=== PATIENT | male | born 1965 | race Caucasian/White ===

== ENCOUNTER 2016-11-02 13:22 | Emergency (ER) | payer OTHER ==
[2016-11-02 13:57] VITALS: RESP 18
[2016-11-02] MEDS ORDERED: ORPHENADRINE 30 MG/ML 2 ML VIAL IM STA (14:02)
[2016-11-02] MEDS ORDERED: KETOROLAC 60 MG/2 ML VIAL IM STA (14:02)
--- NOTE | 2016-11-02 14:17 | ED ---
Back Pain HPI - General Chief Complaint: Back Pain/Injury Stated Complaint: Back Pain Time Seen by Provider: 11/02/16 13:55 Source: patient, RN notes reviewed, old records reviewed Limitations: no limitations - History of Present Illness Initial Comments: This is a 50-year-old male presents emergency Department with chief complaint of exacerbation of chronic back pain. Patient reports that he's had a history of a spinal fusion and so thoracic spine last year. He reports that his pain is in the thoracic region of the spine but now breathing towards lumbar spine. Patient reports that he has some numbness and tingling going down his left leg. Patient reports that last year for his spinal fusion he had an episode where he almost lost bowel and bladder control. Patient reports that yesterday he was able to make it to the bathroom but felt like there are people possible similar situation today. Patient reports that he is able to walk and the pain is doing somewhat better today than yesterday. He denies any specific injury or causes of the pain. - Related Data Home Medications Medication Instructions Recorded Confirmed ALPRAZolam [Xanax] 0.25 mg PO BID PRN 10/20/15 10/20/15 Citalopram Hydrobromide [CeleXA] 40 mg PO DAILY 10/20/15 10/20/15 Fluticasone/Salmeterol [Advair 1 puff INHALATION RT-BID 10/20/15 10/20/15 250-50 Diskus] HYDROcodone/APAP 10-325MG [Oneida 1 tab PO HS PRN 10/20/15 10/20/15 10-325] Lisinopril [Zestril] 10 mg PO DAILY 10/20/15 10/20/15 quiNINE SULFATE [Qualaquin] 324 mg PO DAILY 10/20/15 10/20/15 Previous Rx's Medication Instructions Recorded HYDROcodone/APAP 5-325MG [Oneida 1 - 2 each PO Q8HR PRN #90 tab 10/23/15 5-325] predniSONE 20 mg PO DIRECTED #24 tab 10/23/15 Baclofen 10 mg PO TID #20 tab 11/02/16 Ketorolac [Toradol] 10 mg PO TID #15 tab 11/02/16 Allergies Allergy/AdvReac Type Severity Reaction Status Date / Time No Known Allergies Allergy Verified 11/02/16 13:54 Review of Systems ROS Statement: Those systems with pertinent positive or pertinent negative responses have been documented in the HPI. ROS Other: All systems not noted in ROS Statement are negative. Constitutional: Denies: fever, chills Eyes: Denies: eye pain ENT: Denies: ear pain, throat pain Respiratory: Denies: cough, dyspnea Cardiovascular: Denies: chest pain, palpitations Endocrine: Denies: fatigue Gastrointestinal: Denies: abdominal pain, nausea Genitourinary: Denies: urgency, dysuria Musculoskeletal: Reports: back pain Skin: Denies: rash, lesions Neurological: Denies: headache, weakness Psychiatric: Denies: anxiety, depression Past Medical History Past Medical History: Hypertension Additional Past Medical History / Comment(s): back pain History of Any Multi-Drug Resistant Organisms: None Reported Past Surgical History: No Surgical Hx Reported Past Psychological History: Depression Smoking Status: Current every day smoker Past Alcohol Use History: Occasional Past Drug Use History: None Reported - Past Family History Mother Family Medical History: No Reported History Father Family Medical History: Diabetes Mellitus General Exam - General Exam Comments Initial Comments: This is a 50-year-old male. No acute distress. Limitations: no limitations General appearance: alert, in no apparent distress Head exam: Present: atraumatic, normocephalic, normal inspection Eye exam: Present: normal appearance, PERRL, EOMI. Absent: scleral icterus, conjunctival injection, periorbital swelling ENT exam: Present: normal exam, mucous membranes moist Neck exam: Present: normal inspection. Absent: tenderness, meningismus, lymphadenopathy Respiratory exam: Present: normal lung sounds bilaterally. Absent: respiratory distress, wheezes, rales, rhonchi, stridor Cardiovascular Exam: Present: regular rate, normal rhythm, normal heart sounds. Absent: systolic murmur, diastolic murmur, rubs, gallop, clicks GI/Abdominal exam: Present: soft, normal bowel sounds. Absent: distended, tenderness, guarding, rebound, rigid Rectal exam: Present: normal inspection, normal rectal tone Extremities exam: Present: normal inspection, full ROM, normal capillary refill. Absent: tenderness, pedal edema, joint swelling, calf tenderness Back exam: Present: normal inspection Neurological exam: Present: alert, oriented X3, CN II-XII intact Psychiatric exam: Present: normal affect, normal mood Skin exam: Present: warm, dry, intact, normal color. Absent: rash Course Vital Signs 11/02/16 11/02/16 13:54 15:49 Temperature 97.0 F L 97.1 F L Pulse Rate 86 57 L Respiratory 18 18 Rate Blood Pressure 173/100 161/95 O2 Sat by Pulse 96 95 Oximetry Medical Decision Making - Medical Decision Making his is a 50-year-old male presents emergency Department with chief complaint of exacerbation of chronic back pain. Patient reports that he's had a history of a spinal fusion and so thoracic spine last year. He reports that his pain is in the thoracic region of the spine but now breathing towards lumbar spine. Patient reports that he has some numbness and tingling going down his left leg. Patient reports that last year for his spinal fusion he had an episode where he almost lost bowel and bladder control. Patient reports that yesterday he was able to make it to the bathroom but felt like there are people possible similar situation today. Patient reports that he is able to walk and the pain is doing somewhat better today than yesterday. He denies any specific injury or causes of the pain. Rectal exam was normal tone. Patient received CT lumbar and thoracic spine. Negative for any significant acute process in contact spine. Patient is given IM Toradol and Norflex. Patient was is much better. Discussed that he needs to follow-up with his orthopedic physician. Patient received treatment plan will comply. Return parameters were discussed. - Radiology Data Radiology results: report reviewed CT thoracic and lumbar spine without contrast shows L4-L5 and L5-S1 there is posterior osteophytes present, associated hypertrophic change of the facets, ligament inflatable causing lateral recess encroachment resulting in moderate to severe spinal stenosis at these levels. Loss of disc height at L5/S1. A foreign L5. Multilevel spondylosis. There is evidence of side fixation presenting T6 through 7 and 8. The brachial the left, transferred febrile screws from the left towards the right. Intravertebral spacing material may be present. Surgical clips are present. There is multilevel spondylosis and loss of disc at the intervertebral vitals of T6 through 7, T7 3 T6 or 7 she'll posterior aspirate eccentric towards the right causing anterior mass effect on the thecal sac. T7-T8 posterior aspirate causes some anterior mass effect thecal sac greater on the left than the right. Thoracic and lumbar spine bodies are intact. Disposition Clinical Impression: Chronic back pain Disposition: HOME SELF-CARE Condition: Good Instructions: Chronic Back Pain (ED) Additional Instructions: Patient advised to rest, apply heat and ice her lower back. Take anti- inflammatory medication muscle action as prescribed. Take your at home pain medication. Return to emergency department if any alarming signs or symptoms occur such as loss of bowel or bladder control. Prescriptions: Baclofen 10 mg PO TID #20 tab Ketorolac [Toradol] 10 mg PO TID #15 tab Referrals: Yvrose Coffey DO [Primary Care Provider] - 1-2 days Time of Disposition: 15:50
--- NOTE | 2016-11-02 15:28 | CT ---
EXAMINATION TYPE: CT thor lumbar spine wo con DATE OF EXAM: 11/02/2016 COMPARISON: CT thoracic lumbar spine without contrast HISTORY: Fusion Helical acquisition obtained through the thoracic and lumbar spine Correlation to prior lumbar MRI, thoracic MRI dated and 22 Oct 2015 HISTORY: History of fusion. Left leg pain and numbness CT DLP: 523.4 mGycm Automated exposure control for dose reduction was used. FINDINGS: At L4-5 and L5-S1 and there are posterior osteophytes present, there is associated hypertrophic yost e of the facets, ligamentum flavum causing lateral recess encroachment and resulting in moderate to s evere spinal stenosis at these levels. Loss of disc height L5-S1, L4-5. There is multilevel spondylos is. Side fixation is present at T6-7-8 with side brachial on the left, transvertebral screws from the lef t towards the right, intervertebral spacing material may be present, surgical clips are present. Ther e is multilevel spondylosis and loss of disc at the intervertebral levels at T6-7, T7-8. T6-7 shows p osterior osteophyte eccentric towards the right causing minimal anterior mass effect on the thecal sa c. At T7-8 posterior osteophyte causes some anterior mass effect on the thecal sac greater on the lef t than on the right. Thoracic and lumbar vertebral bodies are intact. IMPRESSION: POSTOP CHANGES IN THE THORACIC SPINE DESCRIBED. SPINAL STENOSIS L4-5, L5-S1. MULTILEVEL DEGENERATI VE DISC DISEASE.
[2016-11-02 15:50] VITALS: BP 161/95; PULSE 57; TEMP 97.1
== END 2016-11-02 15:59 | disposition home or self-care (01) ==
LOC: EC 13:22
DX: M48.07 Spinal stenosis, lumbosacral region (principal); M47.817 Spondylosis without myelopathy or radiculopathy, lumbosacral region; M47.814 Spondylosis without myelopathy or radiculopathy, thoracic region; I10 Essential (primary) hypertension; F32.9 Major depressive disorder, single episode, unspecified; F17.200 Nicotine dependence, unspecified, uncomplicated; Z79.51 Long term (current) use of inhaled steroids; Z79.899 Other long term (current) drug therapy; Z98.1 Arthrodesis status
CPT/HCPCS: 72128; 72131; 99284; 96372 ×2; J2360; J1885

== ENCOUNTER 2017-05-30 08:18 | Day surgery (SDC) | payer OTHER ==
[2017-05-29 11:29] VITALS: BMI 28.5
[2017-05-30 08:27] VITALS: TEMP 97.1
[2017-05-30] MEDS ORDERED: LIDOCAINE 1% 20 ML VIAL (10MG/ML) FOR IV START INTRADERMA ONE (08:37)
[2017-05-30] MEDS ORDERED: LACTATED RINGERS 1,000 ML IV ONE (08:37)
[2017-05-30] MEDS ORDERED: LACTATED RINGERS 1,000 ML IV SCH (09:45)
[2017-05-30] MEDS ORDERED: IV FLUID CONTINUATION 700 ML IV ONE (10:01)
[2017-05-30 10:05] VITALS: RESP 18
[2017-05-30 10:38] VITALS: BP 145/89; PULSE 70
--- NOTE | 2017-05-30 10:41 | FL ---
EXAMINATION TYPE: FL guided pain mgmt statistic DATE OF EXAM: 05/30/2017 HISTORY: Pain L side thoracic steroid injections 4 levels, 57sec fl time
--- NOTE | 2017-05-30 11:13 | XR ---
EXAMINATION TYPE: XR chest 1V portable DATE OF EXAM: 05/30/2017 HISTORY: Shortness of breath. COMPARISON: None. TECHNIQUE: Single view of the chest is submitted. FINDINGS: Demonstrated are scattered senescent parenchymal change. There is no evidence for focal infiltrate. The heart is stable. Hilar and mediastinal structures are within normal limits. Degenerative changes are seen of the dorsal spine. IMPRESSION: 1. Chronic changes without evidence for acute pulmonary disease.
--- NOTE | 2017-05-30 11:41 | P.PCN ---
Date of Procedure: 05/30/17 Surgeon: Nahum Figueroa Pathology: none sent Condition: stable Disposition: PACU Description of Procedure: PREOPERATIVE DIAGNOSIS: Thoracic spondylosis without myelopathy and facet arthropathy. POSTOPERATIVE DIAGNOSIS: Thoracic spondylosis without myelopathy and facet arthropathy. PROCEDURE DESCRIPTION: Patient presents for T3-T4, T4-T5, T5-T6, T6-T7 diagnostic medial branch blocks under fluoroscopic guidance. The procedure is performed using fluoroscopic guidance during needle placement to assure proper position and maximize safety. ANESTHESIA: Local with 1% lidocaine EBL: Minimal PROCEDURE INDICATION: Patient with thoracic facet arthropathy signs and symptoms , here for diagnostic medial branch block. Pt does not take any blood thinning medications. PROCEDURE DESCRIPTION: The patient was seen and identified in the preoperative area. Risks, benefits, complications, and alternatives were discussed with the patient (including but not limited to incomplete pain relief, bleeding, infection, nerve damage, and allergies to medications), the patient agreed to proceed with the procedure and signed the consent after all questions were answered. Patient was taken to the OR and time out was completed to verify proper patient, position, laterality of pain, and allergies. Pt was placed in the prone position and a pillow was placed under the abdomen to reduce lumbar lordosis. The thoracic area was prepped and draped in the usual sterile fashion. Using oblique fluoroscopy, the eye of the "Eren dog" of left T3 vertebral body was identified. Subsequently, after localization, a 22-gauge 3.5-inch spinal needle was inserted under fluoroscopic guidance toward the eye of the "Eren dog" of the left T3 vertebral body, corresponding to the junction of the superior articular process and the transverse process of the pedicle of the same level. After needle tip confirmation on lateral view and after negative aspiration for CSF and blood and without paresthesias, 1 mL of a 4 ml solution of 0.5% preservative-free bupivacaine and 10 mg Decadron was injected. Subsequently the needle was withdrawn intact and the same procedure was repeated for the left T4, left T5, and left T6 medial branches. Needle was withdrawn intact after each injection. At the end of the procedure, the skin was cleansed and bandages were applied. COMPLICATIONS: None. DISPOSITION/PLAN: The patient taken to the recovery area after the procedure in a stable condition for observation. Patient was reexamined prior to discharge and there were no issues and he already had significant relief. Patient was discharged home, accompanied by an adult, after meeting discharged criteria. Discharge instructions were give to the patient by the staff. Patient was specifically instructed not to drive today and to rest for the rest of the day. Patient will follow up for repeat thoracic MBB on left side in approximately 4-6 weeks.
== END 2017-05-30 11:39 | disposition home or self-care (01) ==
LOC: ORPAIN 08:18
PROVIDERS: ATTEND Anesthesiology
DX: G89.29 Other chronic pain (principal); M47.814 Spondylosis without myelopathy or radiculopathy, thoracic region; I10 Essential (primary) hypertension; F17.200 Nicotine dependence, unspecified, uncomplicated; Z79.51 Long term (current) use of inhaled steroids; Z79.891 Long term (current) use of opiate analgesic; Z79.899 Other long term (current) drug therapy
CPT/HCPCS: 71010; 64490; 64491; 64492; J1100; 99152

== ENCOUNTER 2017-08-05 07:13 | Day surgery (SDC) | payer OTHER ==
[2017-07-03 13:53] VITALS: BMI 28.5
[~2017-08-05 07:13] MED LIST: LACTATED RINGERS 1,000 ML IV SCH
[2017-08-05 07:49] VITALS: TEMP 97.6
[2017-08-05] MEDS ORDERED: LIDOCAINE 1% 20 ML VIAL (10MG/ML) FOR IV START INTRADERMA ONE (07:51)
--- NOTE | 2017-08-05 09:25 | P.PCN ---
Date of Procedure: 08/05/17 Procedure(s) Performed: PREOPERATIVE DIAGNOSIS : 1- Thoracic spondylosis with Facet Arthropathy without myelopathy . POSTOPERATIVE DIAGNOSIS: 1-Thoracic spondylosis with Facet Arthropathy without myelopathy . PROCEDURE: Diagnostic Left T3-4, T4-5 , T5-6 , T6-7 medial branch block under fluoroscopy ANESTHESIA: Local with 1% lidocaine 6 ml , moderate sedation with intravenous Versed 2 mg and Fentanyl 50 mcg. EBL: Minimal COMPLICATION: None. IV FLUIDS: 100 mL of normal saline. PROCEDURE INDICATION: Chronic low back pain secondary to Facet arthropathy unresponsive to conservative treatment. PROCEDURE DESCRIPTION: the patient was seen and identified in the preop holding area , risks and benefits and possible complications of the procedure and alternative were discussed with the patient, and the patient agreed to proceed with the procedure and signed the consent IV was started and vital signs monitored during the procedure and fluoroscopy was used to maximize the benefit and accuracy of the needle placement, and sedation was given to decrease patient anxiety, patient was taken to the procedure room and placed in prone position vital signs monitored in the back prepped with chlorhexidine X3 then under strict sterile technique using a right oblique fluoroscopy ,the junction of the transverse process and the superior articulating process of the Left T3 ,T4 ,T5 ,T6 vertebra which corresponding to the fluoroscopy image of the eye of the Eren dog on the block side for the medial branches and subsequently , after local infiltration of skin and subcu tissuies with lidocaine 1% one mL at each level ,then 22-gauge Quincke-type needles , 4 needle was used , each one of them placed at the junction of the base of the transverse process and the superior articular process at the appropriate level, and the needle was advanced until the periosteum contacted, needle placement confirmed with AP oblique and lateral view and after appropriate needle placement confirmed, and after negative aspiration for heme and CSF and there was no paresthesia 2 mL of Marcaine 0.5% mixed with 40 mg Kenalog , then half mL injected at each level after negative aspiration the needle subsequently removed intact . At the end of the procedure and the needles removed and a bandage applied after the skin was cleaned the cleaning solution patient taken to recovery room in stable condition and monitors in the recovery room for 20-30 minutes and discharged home in stable condition after discharge criteria met and patient will follow up with the pain clinic in 2-4 weeks
[2017-08-05] MEDS ORDERED: IV FLUID CONTINUATION 1,000 ML IV ONE (09:29)
[2017-08-05 09:52] VITALS: RESP 18
[2017-08-05] MEDS ORDERED: ENALAPRILAT 1.25 MG/ML 1 ML VIAL IVP STA (09:52)
--- NOTE | 2017-08-05 09:53 | XR ---
EXAMINATION TYPE: XR chest 1V DATE OF EXAM: 08/05/2017 COMPARISON: Prior chest x-ray 05/30/2017 HISTORY: Pneumothorax, post procedure chest x-ray TECHNIQUE: Single frontal view of the chest is obtained. FINDINGS: Postop changes in the thoracic spine are again noted, sixth rib shows a stable partial res ection appearance. No evident pneumothorax or pleural effusion. Cardiomediastinal silhouette, pulmona ry vascularity and leia are stable. IMPRESSION: Stable exam, no acute abnormality.
[2017-08-05 10:17] VITALS: BP 152/91; PULSE 67
--- NOTE | 2017-08-05 10:31 | FL ---
EXAMINATION TYPE: FL guided pain mgmt statistic DATE OF EXAM: 08/05/2017 COMPARISON: NONE HISTORY: Back pain TECHNIQUE: Fluoroscopy. FINDINGS/IMPRESSION: Fluoroscopic guidance was provided during procedure performed by Dr. Gamez. A total of 10 seconds of fluoroscopic time was utilized during the procedure and 3 spot images was a cquired during a left thoracic facet block.
== END 2017-08-05 10:30 | disposition home or self-care (01) ==
LOC: ORPAIN 07:13
PROVIDERS: ATTEND Specialist
DX: G89.29 Other chronic pain (principal); M47.814 Spondylosis without myelopathy or radiculopathy, thoracic region; I10 Essential (primary) hypertension
CPT/HCPCS: 71045; 64490; 64491; 64492; J2250; J3301; J3010; 99152

== ENCOUNTER → 2017-08-28 | Outpatient (CLI) | payer OTHER ==
[2017-08-28 14:52] VITALS: BP 170/102; PULSE 78; RESP 18
--- NOTE | 2017-08-29 08:13 | P.PN ---
Subjective Progress Note Date: 08/28/17 This is 51 years old male with a chronic history of severe upper/mid back pain, he was very close with thoracic spondylosis , previously we have been left side thoracic medial branch block x2 , and patient gets more than 50% improvement , after the block, and patient came for follow-up visit and to discuss the results of the procedure and the next step, I explained to the patient that because he had more than 50% improvement he would be good candidate to have radiofrequency ablation of the medial branch thoracic area, procedure risk and benefits and alternatives discussed with the patient and he agreed with proceeding, currently taking Zanaflex 4 mg every 8 hours when necessary and he is getting also Ultram 50 mg every 6 hours when necessary from his primary care, he denies any side effect of the medication he should continue the current medication and he will follow up with the pain clinic he will be scheduled for radiofrequency ablation of the left side medial branch thoracic area at T3 4, T4 5, T5 6, and T6 7 levels under fluoroscopy guidance Objective - Vital Signs Vital signs: Vital Signs Temp Pulse 78 08/28/17 14:46 Resp 18 08/28/17 14:46 BP 170/102 08/28/17 14:46 Pulse Ox Intake & Output 08/28/17 08/29/17 08/29/17 18:59 06:59 18:59 Weight 94.347 kg
== END | disposition home or self-care (01) ==
LOC: PNWHC3 14:01
PROVIDERS: ATTEND Specialist
DX: M47.814 Spondylosis without myelopathy or radiculopathy, thoracic region (principal); Z79.899 Other long term (current) drug therapy; Z79.891 Long term (current) use of opiate analgesic
CPT/HCPCS: 99211

== ENCOUNTER 2017-09-26 06:25 | Day surgery (SDC) | payer OTHER ==
[2017-09-26 06:51] VITALS: RESP 16; TEMP 98
[2017-09-26] MEDS ORDERED: LACTATED RINGERS 1,000 ML IV ONE (06:56)
[2017-09-26] MEDS ORDERED: LIDOCAINE 1% 20 ML VIAL (10MG/ML) FOR IV START INTRADERMA ONE (06:56)
[2017-09-26] MEDS ORDERED: LACTATED RINGERS 1,000 ML IV SCH (07:00)
--- NOTE | 2017-09-26 08:20 | P.PCN ---
Date of Procedure: 09/26/17 Procedure(s) Performed: PREOPERATIVE DIAGNOSIS: 1-Thoracic Spondylosis with Facet Arthropathy without myelopathy.. POSTOPERATIVE DIAGNOSIS: 1- Thoracic Spondylosis with Facet Arthropathy without myelopathy. PROCEDURES : Left Radiofrequency thermocoagulation, T3-L4, T4-L5, and T5-6 ,T6- 7 medial branch, with fluoroscopic guidance ANESTHESIA: Moderate sedation with intravenous versed 2 mg and fentaneyl 100 mcg and local infiltration with lidocaine 1% 6 ml EBL: Minimal PROCEDURE INDICATION: The patient with mid and low back pain secondary to Thoracic facet arthropathy who had more than 50% relief of her pain with previous diagnostic Thoracic medial branch block with bupivacaine. PROCEDURE DESCRIPTION / TECHNIQUE: The patient was seen and identified in the preoperative area. Risks, benefits, complications, including but not limited to risk of infection ,bleeding , allergic reactions to the medications and no complete pain releife , and alternatives were discussed with the patient, the patient agreed to proceed with the procedure and signed the consent. IV was started. Vital signs remained stable throughout the procedure. Patient was taken to the OR and time out was completed. The patient was placed in the prone position on the procedure table. The lumber area was prepped and draped in the usual sterile fashion. . Vital signs were closely monitored during the procedure .IV sedation was used during the procedure to decrease patients anxiety. Using AP and then oblique fluoroscopy, the ``eye of the Eren dog corresponding to the connection between the superior and transverse articular processes of Left T3, T4, and T5 T6 were identified, marked, and localized with 1% lidocaine. Subsequently, a 20 -mf radiofrequency cannula with a 10-mm active tip was advanced guided by fluoroscopy to each of the ``eyes of the Eren dog at Left T3, T4 , and T5. T6 Each site then underwent sensory testing at 50 Hz and 0 to 1 volt and motor testing at 2.5 Hz and 0 to 3 volt with local stimulation, but no radicular symptoms down the legs. Thereafter the Left T3-4 ,T4-5 ,T5-6 ,T6-7 sites underwent radiofrequency thermocoagulation at 80 degrees celsius for 90 seconds after injecting 0.5 ml of PF lidocaine 1%. then After the thermocoagulation done , 1 ml of the block solution containing Kenalog 40 mg and 3 ml of marcain 0.5% was injected at the Left T3-4 ,T4-5 ,T5-6 , T6-7 , levels after negative aspiration of CSF and blood and with no paresthesias. Cannulas were retracted while injecting lidocaine 1% until the needle is out At the end of the procedure, the skin was cleansed and bandages were applied. COMPLICATIONS: No acute complications. DISPOSITION / PLANS: The patient was placed in a supine position and transferred to the recovery area in a stable condition for observation and was discharged from the recovery room after meeting discharge criteria. Home discharge instructions given to the patient by the staff. The patient was reexamined prior to discharge. The patient will schedule a follow up in the clinic in 2-4 weeks.
[2017-09-26] MEDS ORDERED: IV FLUID CONTINUATION 1,000 ML IV ONE (08:22)
--- NOTE | 2017-09-26 08:33 | FL ---
Fluoroscopy History: THORACIC RADIO FREQ 42 SECS AND [address] Oglesby supervised use of the c-arm for a thoracic radio freq with pain management 42 secs fluoro and 3 paper images
--- NOTE | 2017-09-26 09:14 | XR ---
EXAMINATION TYPE: XR chest 1V portable DATE OF EXAM: 09/26/2017 COMPARISON: 08/05/2017 HISTORY: Shortness of breath TECHNIQUE: Frontal and lateral views of the chest are obtained. FINDINGS: Scattered senescent parenchymal changes noted. Hyperinflation compatible with COPD. No evidence for infiltrate. No evidence for atelectasis. Heart size is stable. Mediastinal structures are stable and grossly unremarkable. No evidence for hilar prominence. Degenerative changes dorsal spine. IMPRESSION: 1. No evidence for acute pulmonary disease.
[2017-09-26 09:37] VITALS: BP 154/85; PULSE 73
== END 2017-09-26 09:49 | disposition home or self-care (01) ==
LOC: ORPAIN 06:25
PROVIDERS: ATTEND Specialist
DX: M47.814 Spondylosis without myelopathy or radiculopathy, thoracic region (principal); Z98.1 Arthrodesis status; I10 Essential (primary) hypertension
CPT/HCPCS: 71045; 64633; 64634; J2250; J3301; J3010; 99152; 99153

== ENCOUNTER 2017-11-21 11:05 | Emergency (ER) | payer OTHER ==
[2017-11-21] MEDS ORDERED: HYDROcodone/APAP 7.5-325MG 1 EACH TAB PO STA (11:42)
--- NOTE | 2017-11-21 11:47 | ED ---
General Adult HPI - General Chief complaint: Back Pain/Injury Stated complaint: back pain Time Seen by Provider: 11/21/17 11:15 Source: patient, family, RN notes reviewed, old records reviewed Mode of arrival: ambulatory Limitations: no limitations - History of Present Illness Initial comments: Chief complaint and history of present illness is a 52-year-old male here with her significant other. The patient reports approximately 2 weeks ago while on the job lifting something it may been too heavy for him. Shortly thereafter started having discomfort to his back and neck. He does states she's had chronic issues with his neck with what he believes to be 2 bulging disks. He's also had surgery on his thoracic spine 2016 with fusion of T6 7 and 8. He states at that time he got Soni is becoming numb and tingly. Today he reported he started having discomfort at work and starting having some numbness and tingling. 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 The numbness and tingling has subsided significantly. Mild tingling but no numbness. Full range of motion upper and lower extremities. No difficulties with squeezing his buttock muscles. States she would not have any difficulty controlling urine or stool. - Related Data Home Medications Medication Instructions Recorded Confirmed ALPRAZolam [Xanax] 0.25 mg PO BID PRN 10/20/15 11/21/17 Citalopram Hydrobromide [CeleXA] 40 mg PO DAILY 10/20/15 11/21/17 Lisinopril [Zestril] 10 mg PO DAILY 10/20/15 11/21/17 quiNINE SULFATE [Qualaquin] 324 mg PO DAILY 10/20/15 11/21/17 Methocarbamol [Robaxin] 750 mg PO BID 05/13/17 11/21/17 traMADol HCL [Ultram] 50 mg PO TID PRN 05/13/17 11/21/17 Ibuprofen [Motrin] 800 mg PO TID PRN 11/21/17 11/21/17 Sildenafil Citrate [Viagra] 50 mg PO ONCE PRN 11/21/17 11/21/17 Previous Rx's Medication Instructions Recorded Hydrocodone/Acetaminophen [Bryant 1 each PO Q6HR PRN #10 tab 11/21/17 5-325] methylPREDNISolone Dose Pack 4 mg PO DIRECTED #21 package 11/21/17 [Medrol Dose Pack] Allergies Allergy/AdvReac Type Severity Reaction Status Date / Time No Known Allergies Allergy Verified 11/21/17 11:46 Review of Systems ROS Statement: Those systems with pertinent positive or pertinent negative responses have been documented in the HPI. Review of systems no headache or visual acuity changes. Complains of chronic neck pain. Mid back pain as well below low back pain. No chest pain shortness breath no GI/ problems currently no neuro deficits though he did have some numbness and tingling this morning while on the job. All systems are reviewed past medical problems significant for hypertension, he did take his medications today but he says he is in pain and nervous. He's also chronic back pain. He' s been through steroid shots and rhizotomy as recently as several months ago. He's also of back fusion of T6 7 and 8 and 2016. Family history mother had lung cancer. Patient denies any ALLERGIES. He does smoke strongly encouraged to stop special because his family history of lung cancer. His alcohol socially. No known ALLERGIES. ROS Other: All systems not noted in ROS Statement are negative. Past Medical History Past Medical History: Hypertension Additional Past Medical History / Comment(s): back pain History of Any Multi-Drug Resistant Organisms: None Reported Past Surgical History: Back Surgery Additional Past Surgical History / Comment(s): BACK FUSION T6-8. Pain procedures. Past Anesthesia/Blood Transfusion Reactions: No Reported Reaction Past Psychological History: Anxiety, Depression Smoking Status: Current every day smoker Past Alcohol Use History: Daily Past Drug Use History: None Reported - Past Family History Mother Family Medical History: No Reported History Father Family Medical History: Diabetes Mellitus General Exam - General Exam Comments Initial Comments: General: The patient is awake and alert, patient complains of pain in his thoracic and cervical region. Numbness tingling he had earlier since subsided. Vital signs temperature 98.4 pulse 78 respiratory rate 20 pulse ox 99% room air blood pressure 170/114. This was repeated after he sees pain medication. Eye: Pupils are equal, round and reactive to light, extra-ocular movements are intact ; there is normal conjunctiva bilaterally. No signs of icterus. Ears, nose, mouth and throat: There are moist mucous membranes and no oral lesions. Neck: Patient does complain of neck pain with neck flexion and extension which she reports is chronic but worse today. Cardiovascular: There is a regular rate and rhythm. No murmur, rub or gallop is appreciated. Respiratory: Lungs are clear to auscultation, respirations are non-labored, breath sounds are equal. No wheezes, stridor, rales, or rhonchi. Gastrointestinal: No nausea no vomiting. States he is able to tighten loosen his buttock muscles. Back: There is no tenderness to palpation in the midline. There is no obvious deformity. No rashes noted. Musculoskeletal: Full range of motion of upper and lower extremities. Neurovascular status is intact. No focal or lateralizing findings appreciated. Neurological: CN II-XII intact, There are no obvious motor or sensory deficits. Coordination appears grossly intact. Speech is normal. No focal or lateralizing findings appreciated on examination. See chief complaint concerning numbness tingling earlier today. Skin: Skin is warm and dry and no rashes or lesions are noted. Psychiatric: Cooperative, Limitations: no limitations Course Vital Signs 11/21/17 11/21/17 11:09 11:59 Temperature 98.4 F Pulse Rate 78 69 Respiratory 20 19 Rate Blood Pressure 170/114 160/96 O2 Sat by Pulse 99 97 Oximetry Medical Decision Making - Medical Decision Making Medical decision making; this is a 52-year-old male with chronic neck and back pain with previous thoracic spine surgery. Experienced pain numbness and tingling earlier today is since subsided. The patient reports is normally on tramadol but when given the option of tramadol or Bryant he requested of Bryant at this time. States he has not on Bryant for any other reasons. CT of the cervical and thoracic spine were done and reviewed by radiologist his final impression is stable postsurgical changes mid thoracic spine. Degenerative changes lower cervical spine as noted and detailed above. That particular report includes cervical spine as visualized in its entirety from C1 through the upper thoracic levels, demonstrates straightening alignment without evidence of acute fracture dislocation. The prevertebral soft tissue appears within normal limits. The C1-C2 articulation is within normal limits on the coronal images. Vertebral body heights are maintained there is moderate disc space narrowing at C5-C6 and C6 to C7 levels. Right paracentral spur disc complex effacing anterior thecal sac at C5-C6 level on the sagittal image 42 confirmed on axial image 62 causing advanced right sided neural foraminal narrowing. As reported by Dr. godoy The rest the report was discussed with the patient. The patient was placed on a muscle relaxant and pain medication for short duration less than 3 days. Also on steroid. Advised to follow-up with his family doctor, chronic pain management doctor and his spine surgeon. Patient be off work 3 days. Disposition Clinical Impression: Degenerative disc disease, cervical Disposition: HOME SELF-CARE Condition: Fair Instructions: Cervical Spinal Stenosis (ED), Degenerative Disc Disease (ED) Additional Instructions: No lifting. Take medications as directed. Follow-up with your family doctor, her chronic pain doctor anterior spine surgeon. Off work 3 days Prescriptions: Hydrocodone/Acetaminophen [Bryant 5-325] 1 each PO Q6HR PRN #10 tab PRN Reason: Pain methylPREDNISolone Dose Pack [Medrol Dose Pack] 4 mg PO DIRECTED #21 package Is patient prescribed a controlled substance at d/c from ED?: Yes When asked, does pt state using other controlled substances?: Yes If prescribed controlled substance>3 days was MAPS reviewed?: No If opioid is for acute pain is fill amount 7 days or less?: Yes If Rx opioid, was Start Talking consent form obtained?: Yes Referrals: Yvrose Coffey DO [Primary Care Provider] - 1-2 days Time of Disposition: 12:45
--- NOTE | 2017-11-21 12:34 | CT ---
EXAMINATION TYPE: CT CervThoracic spine wo con DATE OF EXAM: 11/21/2017 COMPARISON: MRI thoracic spine April 05, 2017 HISTORY: Upper back and neck pain with bilateral arm tingling CT DLP: 1979.4 mGycm. Automated Exposure Control for Dose Reduction was Utilized. TECHNIQUE: CT scan of the cervical in thoracic spine are obtained without contrast, axial images are obtained, sagittal and coronal reformatted images are also reviewed. FINDINGS: Cervical spine is visualized in its entirety from C1 through upper thoracic levels, demonst rates straightened alignment without evidence of acute fracture or dislocation. Prevertebral soft ti ssue appears within normal limits. The C1-C2 articulation is within normal limits on the coronal ginna ges. Vertebral body heights are maintained. There is moderate disc space narrowing at C5-C6 and C6-C7 leve ls. Right paracentral spur disc complex effacing anterior thecal sac at C5-C6 level on sagittal image 42 confirmed on axial image 62 causing advanced right-sided neural foraminal narrowing. There are some multilevel mild uncovertebral facet degenerative changes also seen bilaterally. There is additional left paracentral spur disc complex effacing anterolateral thecal sac at C6-C7 level karlene r axial image 73 with moderate to advanced left and mild to moderate right-sided neural foraminal neel rowing noted. There is mild apical scarring bilaterally in both lung apices. There is increased fluid signal occupying left mastoid air cells. Images of the thoracic spine show stable and satisfactory alignment. There is surgical change with le ft lateral fusion hardware and artificial disc material T6-T8 level. Spinal canal is grossly preserve d. Disc herniation T8-T9 and T11-T12 level are seen better on comparison MRI. No new large disc herni ations are present. No acute fracture or dislocation is seen. Visualized lungs are clear. IMPRESSION: Stable postsurgical changes mid thoracic spine. Degenerative changes lower cervical spin e are noted as detailed above.
[2017-11-21 13:19] VITALS: BP 158/94; PULSE 72; RESP 20; TEMP 97.9
== END 2017-11-21 13:00 | disposition home or self-care (01) ==
LOC: EC 11:05
DX: M50.30 Other cervical disc degeneration, unspecified cervical region (principal); I10 Essential (primary) hypertension; F32.9 Major depressive disorder, single episode, unspecified; F41.9 Anxiety disorder, unspecified; F17.200 Nicotine dependence, unspecified, uncomplicated; Z79.899 Other long term (current) drug therapy
CPT/HCPCS: 72125; 72128; 99284

== ENCOUNTER 2018-10-03 13:53 | Emergency (ER) | payer OTHER ==
[2018-10-03 14:04] VITALS: PULSE 75; RESP 18; TEMP 97.7
[2018-10-03] MEDS ORDERED: KETOROLAC 60 MG/2 ML VIAL IM STA (15:16)
--- NOTE | 2018-10-03 15:48 | ED ---
General Adult HPI - General Chief complaint: Back Pain/Injury Stated complaint: Leg numbness, neck & back pain Time Seen by Provider: 10/03/18 14:44 Source: patient, RN notes reviewed, old records reviewed Mode of arrival: ambulatory Limitations: no limitations - History of Present Illness Initial comments: 52-year-old male patient with past medical history of chronic cervical thoracic back pain. Patient is status post T6 to T8 fusion. Patient presents to ER with primary complaint of back pain with radiculopathy. Patient reports that he's having pain in his cervical and thoracic spine as well as some waxing and waning paresthesias in his upper extremities, and some minor paresthesias and has posterior right lower extremity. Patient states that these additional symptoms that he has had in the past prior to his thoracic fusion procedure. Patient has any recent falls or trauma. Patient has any injury. Patient denies any loss of bowel or bladder control, saddle anesthesia, lower upper extremity weakness. Patient is ambulatory without difficulty. Patient denies any other complaints. Systemic: Pt denies fatigue, myalgia, fever/chills, rash. Pt denies weakness, night sweats, weight loss. Neuro: Pt denies headache, visual disturbances, syncope or pre-syncope. HEENT: Pt denies ocular discharge or irritation, otalgia, rhinorrhea, phary ngitis or notable lymphadenopathy. Cardiopulmonary: Pt denies chest pain, SOB, heart palpitations, dyspnea on exertion. Abdominal/GI: Pt denies abdominal pain, n/v/d. : Pt denies dysuria, burning w/ urination, frequency/urgency. Denies new onset urinary or bowel incontinence. MSK: Pt denies myalgia, loss of strength or function in extremities. Neuro: Pt denies new onset weakness. - Related Data Home Medications Medication Instructions Recorded Confirmed ALPRAZolam [Xanax] 0.25 mg PO HS PRN 10/20/15 10/03/18 Citalopram Hydrobromide [CeleXA] 40 mg PO DAILY 10/20/15 10/03/18 quiNINE SULFATE [Qualaquin] 324 mg PO DAILY 10/20/15 10/03/18 Methocarbamol [Robaxin] 750 mg PO BID PRN 05/13/17 10/03/18 Sildenafil Citrate [Viagra] 50 mg PO ONCE PRN 11/21/17 10/03/18 Celecoxib [CeleBREX] 200 mg PO DAILY 10/03/18 10/03/18 Lisinopril 40 mg PO DAILY 10/03/18 10/03/18 Previous Rx's Medication Instructions Recorded Ibuprofen [Motrin] 600 mg PO Q6HR PRN #40 day 10/03/18 Allergies Allergy/AdvReac Type Severity Reaction Status Date / Time No Known Allergies Allergy Verified 10/03/18 15:30 Review of Systems ROS Statement: Those systems with pertinent positive or pertinent negative responses have been documented in the HPI. ROS Other: All systems not noted in ROS Statement are negative. Past Medical History Past Medical History: Hypertension Additional Past Medical History / Comment(s): back pain History of Any Multi-Drug Resistant Organisms: None Reported Past Surgical History: Back Surgery Additional Past Surgical History / Comment(s): BACK FUSION T6-8. Pain procedures. Past Anesthesia/Blood Transfusion Reactions: No Reported Reaction Past Psychological History: Anxiety, Depression Smoking Status: Current every day smoker Past Alcohol Use History: Daily Past Drug Use History: None Reported - Past Family History Mother Family Medical History: No Reported History Father Family Medical History: Diabetes Mellitus General Exam - General Exam Comments Initial Comments: Constitutional: NAD, AOX3, Pt has pleasant affect. HEENT: NC/AT, trachea midline, neck supple, no lymphadenopathy. Posterior pharynx non erythematous, without exudates. External ears appear normal, without discharge. Mucous membranes moist. Eyes PERRLA, EOM intact. There is no scleral icterus. No pallor noted. Cardiopulmonary: RRR, no murmurs, rubs or gallops, no JVD noted. Lungs CTAB in anterior and posterior cortez. No peripheral edema. Abdominal exam: Abdomen soft and non-distended. Abdomen non-tender to palpation in all 4 quadrants. Bowel sounds active in LLQ. No hepatosplenomegaly. No ecchymosis Neuro: CN II-XII intact. No nuchal rigidity. No focal deficit no facial droop. MSK: 5 out of 5 strength quadriceps psoas muscles. The toe walking intact. 2 out of 4 reflexes patellar and Achilles. No tenderness cervical thoracic lumbar spine. No posterior calf tenderness bilaterally, homans sign negative bilaterally. Posterior tibialis and radial pulse +2 bilaterally. Sensation intact in upper and lower extremities. Full active ROM in upper and lower extremities, 5/5 stregnth in upper and lower extremities. Limitations: no limitations Course Vital Signs 10/03/18 14:01 Temperature 97.7 F Pulse Rate 75 Respiratory 18 Rate Blood Pressure 156/92 O2 Sat by Pulse 97 Oximetry Medical Decision Making - Medical Decision Making 52-year-old male patient with past medical history of chronic cervical thoracic back pain. Patient is status post T6 to T8 fusion. Patient presents to ER with primary complaint of back pain with radiculopathy. Patient reports that he's having pain in his cervical and thoracic spine as well as some waxing and waning paresthesias in his upper extremities, and some minor paresthesias and has posterior right lower extremity. Patient states that these additional symptoms that he has had in the past prior to his thoracic fusion procedure. Patient has any recent falls or trauma. Patient has any injury. Patient denies any loss of bowel or bladder control, saddle anesthesia, lower upper extremity weakness. Patient is ambulatory without difficulty. Patient denies any other complaints. Patient vital signs stable, afebrile. Physical exam displayed: 5 out of 5 strength quadriceps psoas muscles. The toe walking intact. 2 out of 4 reflexes patellar and Achilles. No tenderness cervical thoracic lumbar spine. No posterior calf tenderness bilaterally, homans sign negative bilaterally. Posterior tibialis and radial pulse +2 bilaterally. Sensation intact in upper and lower extremities. Full active ROM in upper and lower extremities, 5/5 stregnth in upper and lower extremities. Plain film of cervical, thoracic, lumbar spine did not display acute process. Patient administration of Toradol. Patient discharged with nonsteroidal anti-inflammatories. Pt will f/u with pcp as well as orthopedic surgeon in 1-2 days. Pt will return to ER if condition worsens in anyway. Case discussed with Dr. Baugh. Disposition Clinical Impression: Back pain with radiculopathy Disposition: HOME SELF-CARE Condition: Stable Instructions (If sedation given, give patient instructions): Chronic Back Pain (ED) Additional Instructions: Patient to adhere to previously discussed treatment plan and will take medication(s) as directed. Patient to follow up with PCP in 1-2 days. Patient to return to ED if symptoms do not improve. Follow-up with primary care provider and orthopedic surgeon 1-2 days. If unable to follow up with personal orthopedic surgeon orthopedic consult provided. Use nonsteroidal anti-inflammatories as needed for pain. Return to ER if condition worsens in any way. Prescriptions: Ibuprofen [Motrin] 600 mg PO Q6HR PRN #40 day PRN Reason: Pain Is patient prescribed a controlled substance at d/c from ED?: No Referrals: Yvrose Coffey DO [Primary Care Provider] - 1-2 days Joel Webb DO [Doctor of Osteopathic Medicine] - 1-2 days
--- NOTE | 2018-10-03 16:07 | XR ---
EXAMINATION TYPE: XR thoracic spine complete DATE OF EXAM: 10/03/2018 CLINICAL HISTORY: pain TECHNIQUE: Frontal, lateral, and swimmer's view of thoracic spine are obtained. COMPARISON: None. FINDINGS: Thoracic spine show satisfactory alignment without evidence of acute fracture or dislocatio n. Vertebral body heights are preserved. Disc spaces are well preserved. Visualized ribs are unrem arkable. Postsurgical screws and rin T6-T8. Alignment is anatomic. IMPRESSION: No acute fracture or dislocation is seen in the thoracic spine. ICD 10 NO FRACTURE, INIT IAL EVALUATION
--- NOTE | 2018-10-03 16:09 | XR ---
EXAMINATION TYPE: XR cervical spine comp DATE OF EXAM: 10/03/2018 CLINICAL HISTORY: pain COMPARISON: NONE TECHNIQUE: Frontal, lateral, oblique, swimmers, and open mouth view of the cervical spine are obtaine d. FINDINGS: The cervical spine is visualized in its entirety from C1 thru the top of T1 level. It is s atisfactory in alignment without evidence of acute fracture or dislocation. The pre-vertebral soft t issue appears within normal limits. Moderate degenerative disc space narrowing and spondylosis C5-6 a nd C6-7. The C1-C2 articulation is unremarkable on the open mouth view. IMPRESSION: No acute fracture or dislocation is seen in the cervical spine.ICD 10 NO FRACTURE, INITI AL EVALUATION
--- NOTE | 2018-10-03 16:11 | XR ---
EXAMINATION TYPE: XR lumbar spine 2 or 3V DATE OF EXAM: 10/03/2018 CLINICAL HISTORY: pain TECHNIQUE: Three views of the lumbar spine are submitted. COMPARISON: None. FINDINGS: There are 5 lumbar type vertebral bodies identified. The lumbar spine shows satisfactory alignment w ithout evidence of acute fracture or dislocation. Vertebral body heights are within normal limits. Moderate degenerative changes L4-5 and L5-S1. Ventral spondylosis and facet joint arthropathy noted. The overlying soft tissue appears unremarkable. IMPRESSION: No acute fracture or dislocation is seen in the lumbar spine. ICD 10 NO FRACTURE, INITIAL EVALUATION
[2018-10-03 17:43] VITALS: BP 166/82
== END 2018-10-03 17:40 | disposition home or self-care (01) ==
LOC: EC 13:53
DX: M54.13 Radiculopathy, cervicothoracic region (principal); I10 Essential (primary) hypertension; F32.9 Major depressive disorder, single episode, unspecified; F41.9 Anxiety disorder, unspecified; F17.200 Nicotine dependence, unspecified, uncomplicated; Z79.899 Other long term (current) drug therapy; R29.6 Repeated falls
CPT/HCPCS: 72072; 72050; 72100; 99284; 96372; J1885

== ENCOUNTER → 2018-11-04 | Outpatient (CLI) | payer OTHER ==
--- NOTE | 2018-11-04 14:58 | MR ---
EXAMINATION TYPE: MR laurence/lspine wo con DATE OF EXAM: 11/04/2018 COMPARISON: Radiographs of the cervical and lumbar spine dated 10/03/2018 HISTORY: thoracic pain/ spondylolisthesis. Back pain. TECHNIQUE: Multiplanar, multisequence imaging of the cervical and lumbar spine is performed without I V contrast. FINDINGS: Cervical spine: The cervical spine vertebral bodies maintain normal vertebral body heights and alignment. Multilevel disc desiccation is seen. There is very slightly abnormal hyperintense signal of the cervical cord at the C5-C6 and C6-C7 levels without cord expansion therefore relating to mild myelomalacia. Degenerat viridiana endplate changes are present. C2-C3: No significant disc disease, spinal canal stenosis, or right neural foraminal narrowing. There is mild left neural foraminal narrowing due to uncovertebral hypertrophy and facet arthropathy. C3-C4: There is a right paracentral disc herniation minimally narrowing the ventral subarachnoid spac e without spinal canal stenosis nor neural foraminal narrowing. C4-C5: There is uncovertebral hypertrophy and facet arthropathy as well as a small central disc osteo phyte complex also mildly narrowing the ventral subarachnoid space and right neuroforamen. Left neura l foramen is patent. No significant spinal canal stenosis. C5-C6: There is a right paracentral disc herniation extending into the lateral recess creating modera te to severe right neural foraminal narrowing and mild to moderate spinal canal stenosis. Minimal lig amentum flavum buckling is also seen as well as facet arthropathy and uncovertebral hypertrophy. Ther e is resultant mild to moderate left neural foraminal narrowing. C6-C7: There is a left paracentral disc herniation extending into the lateral recess superimposed upo n a broad-based disc bulge. Uncovertebral hypertrophy and facet arthropathy are present creating mild to moderate spinal canal stenosis and resulting in mild myelomalacia. There is also moderate left ne ural foraminal narrowing and [id number] right neural foraminal narrowing. C7-T1: There is a right paracentral disc herniation superimposed on a broad-based disc bulge in [facility] with uncovertebral hypertrophy creating moderate right neural foraminal narrowing. Spinal julio l and left neural foramen are patent. Lumbar spine: There is minimal retrolisthesis of L5 on S1, L4 on L5, L3 and L4, and L2 on L3. Modic type II discoge boyd endplate changes are present at L4-L5 and L5-S1. Conus medullaris is unremarkable terminating at L1-L2. L1-L2: There is disc desiccation without disc herniation, spinal canal stenosis nor neural foraminal narrowing. L2-L3: There is a broad-based disc bulge and facet arthropathy resulting in very minimal bilateral ne ural foraminal narrowing without spinal canal stenosis. L3-L4: There is a right paracentral disc herniation extending into the lateral recess creating modera te right neural foraminal narrowing and mild left neural foraminal narrowing in combination with face t arthropathy. No spinal canal stenosis. L4-L5: There is a large broad-based disc bulge that is right eccentric and a right lateral disc herni ation creating moderate right neural foraminal narrowing and mild spinal canal stenosis in combinatio n with ligamentum flavum buckling and facet arthropathy. Minimal left neural foraminal narrowing is s een. L5-S1: There is a large broad-based disc bulge and left paracentral disc herniation creating severe s warner canal stenosis in combination with ligamentum flavum buckling and facet arthropathy. This also creates moderate to severe left and moderate right neural foraminal narrowing. IMPRESSION: 1. Mild to moderate spinal canal stenosis at C5-C6 resulting in myelomalacia focally as a result of a right paracentral disc herniation and degenerative change. This also results in mild to moderate lef t neural foraminal narrowing and moderate to severe right neural foraminal narrowing as the herniatio n extends into the right lateral recess. 2. Left paracentral disc herniation at C6-C7 creating mild to moderate spinal canal stenosis and resu lting in mild myelomalacia. This also creates moderate left neural foraminal narrowing and mild-to-mo derate right neural foraminal narrowing. 3. Right paracentral disc herniation at C3-C4 without spinal canal stenosis nor neural foraminal narr owing. 4. Right paracentral disc herniation at T7 T1 creating moderate right neural foraminal narrowing. No spinal canal stenosis at this level. 5. Right paracentral disc herniation at L3-L4 creating moderate right neural foraminal narrowing with extent into the lateral recess. 6. Mild spinal canal stenosis as a result of a right eccentric disc bulge and right lateral disc cherri iation at L4-L5. This also creates moderate right and minimal left neural foraminal narrowing. 7. Severe spinal canal stenosis at L5-S1 secondary to a left paracentral disc herniation and large br oad-based disc bulge also crating moderate to severe left and moderate right neural foraminal narrowi ng at this level.
== END | disposition home or self-care (01) ==
LOC: RADMRIMAIN 11:49
PROVIDERS: ATTEND Orthopaedic Surgery Orthopaedic Surgery of the Spine
DX: M48.061 Spinal stenosis, lumbar region without neurogenic claudication (principal); M48.07 Spinal stenosis, lumbosacral region; M48.02 Spinal stenosis, cervical region; M50.21 Other cervical disc displacement, high cervical region; M51.26 Other intervertebral disc displacement, lumbar region; M51.27 Other intervertebral disc displacement, lumbosacral region; M47.812 Spondylosis without myelopathy or radiculopathy, cervical region; G95.89 Other specified diseases of spinal cord
CPT/HCPCS: 72141; 72148

== ENCOUNTER → 2018-11-05 | Outpatient (CLI) | payer OTHER ==
--- NOTE | 2018-11-05 16:01 | MR ---
EXAMINATION TYPE: MR thoracic spine wo/w con DATE OF EXAM: 11/05/2018 12:57 PM COMPARISON: 04/05/2017 HISTORY: Pain in thoracic spine / Thoracic DD Multiplanar MultiSpin echo imaging of the thoracic spine was performed. Pre and post contrast enhanc ed images are submitted following the administration of Gadavist 10 mL Disc spaces: Surgical intervention noted T6-T8 with artifact from disc material identified. Persisten t small posterocentral disc herniation at T8-T9 effaces the ventral thecal sac. No new disc herniatio ns identified. The remaining levels are within normal limits. Spinal canal: Spinal canal is capacious without evidence for central stenosis or epidural mass. Thoracic spinal cord: Spinal cord thinning and increased signal involving the T7-T8 level compatible with residual myelomalacia. Paraspinal soft tissues: No evidence for paraspinal mass. No destructive lesions seen. Vertebral segments: No evidence for fracture or bony lesion. Other: Disc herniations and central stenosis C5-6 and C6-7. No pathologic enhancement identified. IMPRESSION: 1. Stable postsurgical change at T6-T8 with artifact redemonstrated. 2. Redemonstration of the atrophic change of the spinal cord at T7-T8 with a myelomalacia seen.
== END | disposition home or self-care (01) ==
LOC: RADMRIMAIN 11:45
PROVIDERS: ATTEND Orthopaedic Surgery Orthopaedic Surgery of the Spine
DX: M54.6 Pain in thoracic spine (principal); G95.89 Other specified diseases of spinal cord; Z98.1 Arthrodesis status
CPT/HCPCS: 72157; A9585

== ENCOUNTER → 2018-11-20 | Outpatient (CLI) | payer OTHER ==
[2018-11-20 13:31] LABS: Basophils # (A) 0.1 k/uL (0-0.2); Basophils % (A) 1 %; Eosinophils # (A) 0.2 k/uL (0-0.7); Eosinophils % (A) 3 %; HCT 44.9 % (39.0-53.0); HGB 15.2 gm/dL (13.0-17.5); Lymphocytes % (A) 24 %; MCH 33.3 pg (25.0-35.0); MCHC 33.9 g/dL (31.0-37.0); MCV 98.2 fL (80.0-100.0); Mean Platelet Volume 8.6; Monocytes # (A) 0.5 k/uL (0-1.0); Monocytes % (A) 6 %; Neutrophils # (A) 5.4 k/uL (1.3-7.7); Neutrophils % (A) 65 %; Platelet Count 157 k/uL (150-450); RBC 4.57 m/uL (4.30-5.90); RDW 14.4 % (11.5-15.5); WBC 8.4 k/uL (3.8-10.6)
--- NOTE | 2018-11-20 13:32 | XR ---
EXAMINATION TYPE: XR chest 2V DATE OF EXAM: 11/20/2018 COMPARISON: 09/26/2017 TECHNIQUE: PA and lateral views submitted. HISTORY: Preop FINDINGS: The lungs are clear and there is no pneumothorax, pleural effusion, or focal pneumonia. There is ev idence of previous left-sided rib resection. Postsurgical change involving vertebral column. Hyperinf lation suggestive of COPD. Biapical pleural thickening. IMPRESSION: 1. No acute process.
[2018-11-20 13:34] LABS: Appearance,Urine Clear (Clear); Bilirubin,Urine Negative (Negative); Blood,Urine Negative (Negative); Color,Urine Yellow; Glucose,Urine (UA) Negative (Negative); Hyaline Casts,Urine 1 /lpf (0-2); Ketones,Urine Negative (Negative); Leukocyte Esterase,Urine Negative (Negative); Mucus,Urine Occasional /hpf; Nitrite,Urine Negative (Negative); PH, Urine 6.5 (5.0-8.0); Protein,Urine 1+ (Negative); WBC,Urine <1 /hpf (0-5)
[2018-11-20 13:39] LABS: Prothrombin Time 10.7 sec (9.0-12.0)
[2018-11-20 13:40] LABS: Partial Thromboplastin Time 24.5 sec (22.0-30.0)
[2018-11-20 13:48] LABS: ALT 36 U/L (21-72); AST 27 U/L (17-59); African American GFR (CKD) >90 (>60 ml/min/1.73 sqM); Albumin 4.1 g/dL (3.5-5.0); Alkaline Phosphatase 53 U/L (38-126); Anion Gap 8 mmol/L; Blood Urea Nitrogen 12 mg/dL (9-20); Calcium 8.9 mg/dL (8.4-10.2); Carbon Dioxide 23 mmol/L (22-30); Chloride 108 mmol/L (98-107); Glucose 103 mg/dL (74-99); Potassium 3.9 mmol/L (3.5-5.1); Sodium 139 mmol/L (137-145); Total Bilirubin 0.7 mg/dL (0.2-1.3); Total Protein 6.5 g/dL (6.3-8.2)
== END | disposition home or self-care (01) ==
LOC: LABPAT 12:17
PROVIDERS: ATTEND Orthopaedic Surgery Orthopaedic Surgery of the Spine
DX: Z01.818 Encounter for other preprocedural examination (principal); Z01.812 Encounter for preprocedural laboratory examination; G95.89 Other specified diseases of spinal cord
CPT/HCPCS: 71046; 80053; 81001; 85025; 85610; 85730

== ENCOUNTER 2018-12-01 14:20 | Day surgery (SDC) | payer OTHER ==
[~2018-12-01 14:20] MED LIST changes: +BACITRACIN 50,000 UNIT, POLYMYXIN B 500,000 UNIT in SODIUM CHLORIDE 0.9% IRRIGATIO 1,00... IRRIGATION ONE; +DEXAMETHASONE SOD PHOSPHATE 10 MG/ML 1 ML VIAL IV ONE; +LIDOCAINE 1% 20 ML VIAL (10MG/ML) FOR IV START INTRADERMA PRN; +MIDAZOLAM 2 MG/2 ML VIAL IV PRN; +ONDANSETRON 4 MG/2 ML VIAL IVP ONE; +ceFAZolin IN SWFI 2 GM/20 ML SYRINGE IVP ONE; +fentaNYL (PF) 50 MCG/ML 2 ML AMP IV PRN
[2018-12-01] MEDS ORDERED: PROPOFOL 10 MG/ML 20 ML VIAL IV ONE (16:26)
[2018-12-01] MEDS ORDERED: GLYCOPYRROLATE 0.2 MG/ML 2 ML VIAL ONE (16:26)
[2018-12-01] MEDS ORDERED: SUCCINYLCHOLINE CHLORIDE 100 MG/5 ML SYR IV ONE (16:26)
[2018-12-01] MEDS ORDERED: NEOSTIGMINE 1 MG/ML 10 ML VIAL ONE (16:26)
[2018-12-01] MEDS ORDERED: ROCURONIUM BROMIDE 10 MG/ML 10 ML VIAL IV ONE (16:26)
[2018-12-01] MEDS ORDERED: fentaNYL (PF) 50 MCG/ML 2 ML AMP ONE (16:26)
[2018-12-01] MEDS ORDERED: ePHEDrine SULFATE/0.9% NACL/PF 50 MG/5 ML SYRINGE IV ONE (16:26)
[2018-12-01] MEDS ORDERED: MIDAZOLAM 2 MG/2 ML VIAL ONE (16:26)
[2018-12-01] MEDS ORDERED: DEXAMETHASONE SOD PHOS (MDV) 100 MG/10 ML VIAL ONE (16:26)
[2018-12-01] MEDS ORDERED: LIDOCAINE 1% INJ 10MG/ML (20 ML MDV) ONE (16:26)
[2018-12-01] MEDS ORDERED: GELATIN SPONGE,ABSORB (LARGE) 1 EACH SPONGE MISCELLANE ONE ×2 (16:30→16:51)
[2018-12-01] MEDS ORDERED: LIDOCAINE 0.5%-EPI 1:200,000 50 ML VIAL SQ ONE ×2 (16:30→16:51)
[2018-12-01] MEDS ORDERED: THROMBIN (BOVINE) 5,000 UNIT VIAL TOPICAL ONE ×4 (16:30→16:51)
[2018-12-01] MEDS ORDERED: LACTATED RINGERS 1,000 ML IV ONE ×2 (16:51→19:30)
[2018-12-01] MEDS ORDERED: HYDROmorphone 1 MG/ML 1 ML SYRINGE IVP PRN (18:26)
[2018-12-01] MEDS ORDERED: HYDROmorphone 0.5 MG/0.5 ML SYRINGE IVP PRN (18:26)
[2018-12-01] MEDS ORDERED: BENZOCAINE/MENTHOL LOZENG 1 EACH LOZENGE MUCOUS MEM PRN (18:26)
[2018-12-01] MEDS ORDERED: HYDROcodone/APAP 5-325MG 1 EACH TAB PO PRN (18:27)
[2018-12-01] MEDS ORDERED: ONDANSETRON 4 MG/2 ML VIAL IVP PRN (18:27)
[2018-12-01] MEDS ORDERED: HYDROcodone/APAP 7.5-325MG 1 EACH TAB PO PRN (18:28)
[2018-12-01] MEDS ORDERED: ALPRAZolam 0.25 MG TAB PO PRN (18:28)
[2018-12-01] MEDS ORDERED: METHOCARBAMOL 750 MG TAB PO PRN (18:28)
[2018-12-01] MEDS ORDERED: SODIUM CHLORIDE 0.9% 1,000 ML IV SCH (18:30)
--- NOTE | 2018-12-01 18:37 | P.OP ---
Date of Procedure: 12/01/18 Preoperative Diagnosis: Herniated nuclear pulposus C5 6 C6 7, cervical stenosis C5 6 C6 7, degenerative disc disease, neck pain, upper extremity radiculopathy, upper extremity weakness Postoperative Diagnosis: Same Anesthesia: GETA Pathology: none sent Condition: stable Disposition: PACU Description of Procedure: BRIEF OPERATIVE NOTE Preoperative Diagnosis:Herniated nuclear pulposus C5 6 C6 7, cervical stenosis C5 6 C6 7, degenerative disc disease, neck pain, upper extremity radiculopathy, upper extremity weakness Postoperative Diagnosis:Herniated nuclear pulposus C5 6 C6 7, cervical stenosis C5 6 C6 7, degenerative disc disease, neck pain, upper extremity radiculopathy, upper extremity weakness Procedure: Anterior cervical decompression with discectomy and fusion C5 6 C6 7 Placement of interbody graft C5 6 C6 7 Removal of large anterior cervical osteophytes and Application of anterior cervical plate C5 6 7 Surgeon: Dr. Mantilla Reproduction Production Manager: Jadon Mar is present throughout the entire the case persistence during positioning, dissection, exposure, visualization, and all crucial elements of the case as well as closure. Anesthesia: General anesthesia Estimated blood loss: Approximately 75 mL Complications: None apparent Components implanted: K2M Villard anterior cervical plate system with 6 screws, Vi kos interbody allograft bone graft and 1 mL of DBX bone putty Disposition: To recovery room in good stable condition. OPERATIVE INDICATIONS The patient has had severe worsening issues in their neck and upper extremities. He was found have large disc herniation C5 6 C6 7 which correlated well with his neck and upper extremity symptoms. He was having worsening symptoms despite aggressive conservative care. He was marc evidence of weakness at his upper extremity. The patient has been through conservative treatment. We discussed various treatment options including surgery, and the patient wishes to proceed with surgery We discussed the risk, patient's alternatives and benefits of surgery including but not limited to, risk of bleeding risk of infection, risk of need for further surgery, risk of decreased, loss of motion, muscle function, malunion nonunion, hardware failure, nerve damage, paralysis, heart attack, and . OPERATIVE SUMMARY After discussing all the risks, patient alternatives and benefits at length, the patient elected to proceed with surgical intervention, signed informed consent, and presented for their procedure. The patient was seen and examined in the p reoperative holding area and the surgical site was marked. The patient was given antibiotics and brought to the operating room. The patient was positioned on the operating room table in a supine position being careful to pad any bony prominences and pressure points. The patient was sedated and intubated by anesthesia in standard fashion. Once the airway and C- spine were stabilized the patient's arms were padded and tucked at her side, with her shoulders gently taped. The head was placed in a donut pad with the neck in good neutral alignment and position. We were careful to maintain the p atient's cervical spine and good neutral alignment and position throughout. The patient was prepped and draped in a normal standard fashion. An appropriate timeout and keystone protocol performed. We were able to proceed with the surgery. The local wound area was infiltrated with local anesthetic. An incision was made transversely approximately 2-1/2 cm over the appropriate levels at C6. Dissection was taken down subcutaneously to the level of the platysma which was split in line with its fibers. Dissection was taken with a carotid approach, with the trachea and esophagus medial and the carotid sheath laterally. We dissected down to the anterior surface of the vertebral bodies of C5 6 and 7. Intraoperative x-ray was taken which showed a marker at the appropriate level at C5 6. With the appropriate level positively confirmed, we were able to proceed with discectomy at the appropriate levels. All of the operative levels were exposed appropriately. The patient had all their twitches back, and there was no evidence of recurrent laryngeal issue. The wound was copiously irrigated and suctioned dry as had been done periodically throughout the case. At the appropriate level/levels, starting at C5 6 and then working the C6 7 I established an annulotomy with an 11 blade scalpel. A discectomy was performed with a combination of pituitary rongeurs, curettes, a high-speed bur, and Kerrison rongeurs. Note was made of significant disc degeneration as well as posterior osteophytes and disc herniation worse on the left than on the right. The posterior longitudinal ligament was taken down as were any posterior osteophytes. This gave good central and bilateral foraminal decompression. There is no evidence of any dural tear or leak. The endplates were prepared with a high-speed bur. With the endplates in good parallel position, I was able to size for the appropriate size interbody graft. The wound was irrigated and suctioned dry the graft was prepared and malleted into position. It had good alignment and position with the anterior surface flush with the anterior surface of the vertebral bodies. This was done similarly the appropriate levels starting at C5 6 and then at C6 7. With the grafts intact, I was able to measure and contour and appropriate sized plate. The plate was positioned at the midline over the appropriate levels. There were large anterior cervical osteophytes was removed and shaved down for assessment surface. Screw holes were established with a hand drill and drill guide. Screws were placed in good alignment and position with excellent bony purchase. They were seated under the locking device. The construct was checked and found to be stable. Intraoperative x-ray was taken which showed good alignment and position of the implants at the appropriate levels at C5 6 and 7. There was no evidence of any dural tear or leak. Good hemostasis was maintained. The wound was copiously irrigated and suctioned dry as had been done periodically throughout the case. The platysma was closed with absorbable suture. The subcutaneous tissue was closed. The subcuticular tissue was closed with absorbable suture. The wound was cleaned and dried and dressed appropriately. A soft cervical collar was placed appropriately. The patient was woken up by anesthesia, extubated, transferred back gently to their hospital bed and brought to the recovery room in good stable condition. The patient will be admitted to the hospital for appropriate postoperative care, medical management and monitoring. We will continue to follow them closely about the postoperative course.
[2018-12-01] MEDS: HYDROmorphone 0.5 MG/0.5 ML SYRINGE IVP PRN ×2 (19:22→19:30)
[2018-12-01 19:48] VITALS: RESP 18
[2018-12-01 21:53] VITALS: BMI 28.8
[2018-12-01 22:33] VITALS: BP 148/77; PULSE 82; TEMP 97.8
--- NOTE | 2018-12-01 22:37 | XR ---
PROCEDURE: XR cervical spine 1V DATE AND TIME: 12/01/2018 5:23 PM CLINICAL INDICATION: PHH; needle placement TECHNIQUE: Department protocol COMPARISON: 10/03/2018 FINDINGS: Patient is intubated. Probe enters from an anterior approach with tip at the C5-6 intervertebral disc space. IMPRESSION: Intraoperative crosstable lateral view.
--- NOTE | 2018-12-01 22:46 | XR ---
PROCEDURE: XR cervical spine 1V DATE AND TIME: 12/01/2018 6:23 PM CLINICAL INDICATION: PH[facility]; Hardware placement TECHNIQUE: Department protocol COMPARISON: 12/01/2018 at 5:11 PM FINDINGS: Patient is intubated. Anterior screw fixation plate with interbody plug is seen at the C5-6 level. IMPRESSION: Intraoperative crosstable lateral view.
[2018-12-02] MEDS ORDERED: ceFAZolin IN SWFI 2 GM/20 ML SYRINGE IVP SCH
[2018-12-02] MEDS ORDERED: SENNOSIDES-DOCUSATE SODIUM 1 EACH TAB PO SCH (09:00)
[2018-12-02] MEDS ORDERED: CITALOPRAM HYDROBROMIDE 20 MG TAB PO SCH (09:00)
[2018-12-02] MEDS ORDERED: LISINOPRIL 20 MG TAB PO SCH (09:00)
== END 2018-12-01 22:20 | disposition home or self-care (01) ==
LOC: OR 14:20 → 4SSUR 18:26 → OR 22:20
PROVIDERS: ATTEND Orthopaedic Surgery Orthopaedic Surgery of the Spine
DX: M50.122 Cervical disc disorder at C5-C6 level with radiculopathy (principal); M25.78 Osteophyte, vertebrae; I10 Essential (primary) hypertension; F32.9 Major depressive disorder, single episode, unspecified; M47.26 Other spondylosis with radiculopathy, lumbar region; M51.16 Intervertebral disc disorders with radiculopathy, lumbar region; M43.16 Spondylolisthesis, lumbar region; Z98.1 Arthrodesis status; F17.210 Nicotine dependence, cigarettes, uncomplicated; E66.9 Obesity, unspecified; Z68.30 Body mass index [BMI] 30.0-30.9, adult; Z97.3 Presence of spectacles and contact lenses; Z79.891 Long term (current) use of opiate analgesic; Z79.899 Other long term (current) drug therapy; Z83.3 Family history of diabetes mellitus
CPT/HCPCS: 22551; 22552; 22845; 20931; 20930; 72020; C1713 ×2; C1762 ×2; J2250; J2710; J2405; J2001; J3010; J1100; J0330; J2704; J1170; J0690; 36415; 86850; 86900; 86901

== ENCOUNTER 2022-05-26 20:46 | Emergency (ER) | payer OTHER ==
[2022-05-26 21:13] VITALS: BP 142/85; PULSE 80; RESP 20; TEMP 97.8
[2022-05-26] MEDS ORDERED: ONDANSETRON 4 MG/2 ML VIAL IVP STA (21:16)
[2022-05-26] MEDS ORDERED: SODIUM CHLORIDE 0.9% 500 ML 500 ML IV STA (21:16)
[2022-05-26 22:10] LABS: ALT 209 U/L (4-49); AST 132 U/L (17-59); African American GFR (CKD) >90 (>60 ml/min/1.73 sqM); Albumin 4.3 g/dL (3.5-5.0); Alkaline Phosphatase 419 U/L (38-126); Anion Gap 11 mmol/L; Blood Urea Nitrogen 11 mg/dL (9-20); Calcium 9.3 mg/dL (8.4-10.2); Carbon Dioxide 23 mmol/L (22-30); Chloride 108 mmol/L (98-107); Glucose 102 mg/dL (74-99); Non-African American GFR(CKD) >90 (>60 ml/min/1.73 sqM); Potassium 3.6 mmol/L (3.5-5.1); Sodium 142 mmol/L (137-145); Total Bilirubin 11.5 mg/dL (0.2-1.3); Total Protein 7.1 g/dL (6.3-8.2)
--- NOTE | 2022-05-26 22:10 | ED ---
General Adult HPI - General Chief complaint: Nausea/Vomiting/Diarrhea Stated complaint: Vomiting,weakness Time Seen by Provider: 05/26/22 21:16 Source: patient Mode of arrival: ambulatory Limitations: no limitations - History of Present Illness Initial comments: This patient is a 56-year-old man who presents to have evaluation for constellation of symptoms that have come on over the past few weeks. Patient states that people had been telling him that his skin appear to be changing color, they noticed that his eyes had some yellowing. This is probably going back over 2 weeks. He does note that he has also had change in his stool. Stool has been loose and has been paler than usual. His urine has been darkening. The patient states that over the past couple of days the color change was marked and his doctor told him he should be seen in emergency. Patient denies any abdominal pain. When questioned about alcohol patient states she was drinking sometimes as much as 10 beers per day to help control his chronic neck pain. A couple of months ago he started having "laser treatments." He states that this has relieved the pain such that he is not drinking nearly as much. He he was taking [place] for chronic pain until a couple months ago but states he rarely takes one now. He is not taking any [id number] Tylenol -: week(s) Severity scale (1-10): 0 Consistency: constant Improves with: none Worsens with: none Associated Symptoms: denies other symptoms Treatments Prior to Arrival: none - Related Data Home Medications Medication Instructions Recorded Confirmed ALPRAZolam [Xanax] 0.25 mg PO HS PRN 10/20/15 05/26/22 Citalopram Hydrobromide [CeleXA] 40 mg PO DAILY 10/20/15 05/26/22 quiNINE sulfate [Qualaquin] 324 mg PO DAILY 10/20/15 05/26/22 methocarbamoL [Robaxin-750] 750 mg PO DAILY 05/13/17 05/26/22 Celecoxib [CeleBREX] 200 mg PO DAILY 10/03/18 05/26/22 lisinopriL 40 mg PO DAILY 10/03/18 05/26/22 HYDROcodone/APAP 10-325MG [[place] 1 tab PO Q6HR PRN 05/26/22 05/26/22 10-325] Sildenafil Citrate [Viagra] 100 mg PO DAILY PRN 05/26/22 05/26/22 Previous Rx's Medication Instructions Recorded Ondansetron Odt [Zofran ODT] 4 mg PO Q8HR PRN #10 tab 05/27/22 Allergies Allergy/AdvReac Type Severity Reaction Status Date / Time No Known Allergies Allergy Verified 05/26/22 22:07 Review of Systems ROS Statement: Those systems with pertinent positive or pertinent negative responses have been documented in the HPI. ROS Other: All systems not noted in ROS Statement are negative. Constitutional: Denies: fever, chills, weakness Eyes: Denies: vision change Respiratory: Denies: cough, dyspnea Cardiovascular: Denies: chest pain, palpitations, edema Gastrointestinal: Reports: other (Changes in stool). Denies: abdominal pain, nausea, vomiting, diarrhea, constipation Genitourinary: Reports: other (Dark urine). Denies: urgency, dysuria, frequency, hematuria Musculoskeletal: Reports: back pain (Chronic pain) Skin: Denies: rash Neurological: Denies: headache, weakness, numbness, confusion Past Medical History Past Medical History: Hypertension Additional Past Medical History / Comment(s): back pain History of Any Multi-Drug Resistant Organisms: None Reported Past Surgical History: Back Surgery Additional Past Surgical History / Comment(s): BACK FUSION T6-8. Pain procedures. Past Anesthesia/Blood Transfusion Reactions: No Reported Reaction Past Psychological History: Anxiety, Depression Smoking Status: Current every day smoker Past Alcohol Use History: Daily Past Drug Use History: None Reported - Past Family History Mother Family Medical History: No Reported History Father Family Medical History: Diabetes Mellitus General Exam Limitations: no limitations General appearance: alert, in no apparent distress, other (The patient does appear jaundiced) Head exam: Present: atraumatic, normocephalic Eye exam: Present: PERRL, EOMI, scleral icterus. Absent: conjunctival injection ENT exam: Present: normal oropharynx Neck exam: Present: normal inspection Respiratory exam: Present: normal lung sounds bilaterally. Absent: respiratory distress, wheezes, rales, rhonchi, stridor Cardiovascular Exam: Present: regular rate, normal rhythm, normal heart sounds. Absent: systolic murmur, diastolic murmur, rubs, gallop GI/Abdominal exam: Present: soft. Absent: distended, tenderness, guarding, rebound, rigid, mass, pulsatile mass, hernia Extremities exam: Present: normal inspection, normal capillary refill. Absent: pedal edema, calf tenderness Back exam: Present: normal inspection. Absent: CVA tenderness (R), CVA tenderness (L) Neurological exam: Present: alert Skin exam: Present: warm, dry, intact, normal color. Absent: rash Course Vital Signs 05/26/22 21:09 Temperature 97.8 F Pulse Rate 80 Respiratory 20 Rate Blood Pressure 142/85 O2 Sat by Pulse 97 Oximetry Medical Decision Making - Medical Decision Making This patient is 56-year-old man presenting with progressive jaundice over the past 2 weeks. He is found to have labs consistent with pancreatitis. Computed tomography scan also shows distended gallbladder. Discussed that there is evidence of obstruction there and that patient will need to have GI consultation. I discussed transfer patient to [facility] where they have GI coverage as we do not have that here. The patient is requesting to see if he can have follow up as outpatient. He does seem stable to tolerate outpatient workup as long as he is able to get right in. Patient will call Saturday for appointment. If there is any difficulty with this plan, he is worsening in any way he will return here immediately - Lab Data Result diagrams: 05/26/22 21:40 05/26/22 21:40 Lab Results 05/26/22 05/26/22 05/26/22 Range/Units 21:40 21:40 21:40 WBC 6.9 (3.8-10.6) k/uL RBC 3.73 L (4.30-5.90) m/uL Hgb 13.1 (13.0-17.5) gm/dL Hct 38.3 L (39.0-53.0) % MCV 102.5 H (80.0-100.0) fL MCH 35.2 H (25.0-35.0) pg MCHC 34.3 (31.0-37.0) g/dL RDW 14.1 (11.5-15.5) % Plt Count 173 (150-450) k/uL MPV 11.1 Neutrophils % 66 % Lymphocytes % 24 % Monocytes % 5 % Eosinophils % 2 % Basophils % 1 % Neutrophils # 4.6 (1.3-7.7) k/uL Lymphocytes # 1.6 (1.0-4.8) k/uL Monocytes # 0.4 (0-1.0) k/uL Eosinophils # 0.1 (0-0.7) k/uL Basophils # 0.0 (0-0.2) k/uL Macrocytosis Slight Sodium 142 (137-145) mmol/L Potassium 3.6 (3.5-5.1) mmol/L Chloride 108 H (98-107) mmol/L Carbon Dioxide 23 (22-30) mmol/L Anion Gap 11 mmol/L BUN 11 (9-20) mg/dL Creatinine 0.95 (0.66-1.25) mg/dL Est GFR (CKD-EPI)AfAm >90 (>60 ml/min/1.73 sqM) Est GFR (CKD-EPI)NonAf >90 (>60 ml/min/1.73 sqM) Glucose 102 H (74-99) mg/dL Plasma Lactic Acid Andrews 1.1 (0.7-2.0) mmol/L Calcium 9.3 (8.4-10.2) mg/dL Total Bilirubin 11.5 H (0.2-1.3) mg/dL AST 132 H (17-59) U/L ALT 209 H (4-49) U/L Alkaline Phosphatase 419 H (38-126) U/L Total Protein 7.1 (6.3-8.2) g/dL Albumin 4.3 (3.5-5.0) g/dL Amylase 678 H* (30-110) U/L Lipase 60185 H (23-300) U/L Disposition Clinical Impression: Pancreatitis due to biliary obstruction, Jaundice Disposition: HOME SELF-CARE Condition: Fair Instructions (If sedation given, give patient instructions): Pancreatitis (ED), Jaundice (ED) Prescriptions: Ondansetron Odt [Zofran ODT] 4 mg PO Q8HR PRN #10 tab PRN Reason: Nausea Is patient prescribed a controlled substance at d/c from ED?: No Referrals: Yvrose Coffey DO [Primary Care Provider] - 1-2 days Juliann Julien MD [STAFF PHYSICIAN] - 1-2 days
[2022-05-26 22:18] LABS: Basophils % (A) 1 %; Eosinophils # (A) 0.1 k/uL (0-0.7); Eosinophils % (A) 2 %; HCT 38.3 % (39.0-53.0); HGB 13.1 gm/dL (13.0-17.5); Lymphocytes # (A) 1.6 k/uL (1.0-4.8); Lymphocytes % (A) 24 %; MCH 35.2 pg (25.0-35.0); MCHC 34.3 g/dL (31.0-37.0); MCV 102.5 fL (80.0-100.0); Macrocytosis Slight; Mean Platelet Volume 11.1; Monocytes # (A) 0.4 k/uL (0-1.0); Monocytes % (A) 5 %; Neutrophils # (A) 4.6 k/uL (1.3-7.7); Neutrophils % (A) 66 %; Platelet Count 173 k/uL (150-450); RBC 3.73 m/uL (4.30-5.90); RDW 14.1 % (11.5-15.5); WBC 6.9 k/uL (3.8-10.6)
[2022-05-26 22:22] LABS: Amylase 678 U/L (30-110)
[2022-05-26 23:01] LABS: Lipase 10295 U/L (23-300)
--- NOTE | 2022-05-27 00:10 | CT ---
EXAMINATION TYPE: CT abdomen pelvis wo con DATE OF EXAM: 05/26/2022 COMPARISON: None HISTORY: New jaundice CT DLP: 585.9 mGycm Automated exposure control for dose reduction was used. Images obtained from the diaphragm to the floor the pelvis with no contrast. The lung bases are clear. No pleural effusion. Heart size is normal. No pericardial effusion. Liver spleen pancreas and stomach appear intact. The bile ducts are not dilated. There is borderline dilated gallbladder that measures 4.6 cm in diameter. There is no adrenal mass. Kidneys show normal size and contour. No hydronephrosis. Ureters are not di lated. No retroperitoneal adenopathy. Abdominal aorta is atheromatous. Appendix is posterior and appe ars normal. The bladder distends smoothly. No inguinal hernia. No free fluid in the pelvis. There are some prosthetic calcifications. Prostate measures 4.5 cm. No evidence of a pelvic mass. There is no mesenteric edema. No ascites or free air. No sign of a bowel obstruction. There are spond ylotic changes at L4-5 and L5-S1. There is spinal stenosis at L4-5 due to facet arthropathy and poste rior disc herniation. There is also some spinal stenosis at L5-S1. IMPRESSION: Atherosclerotic vascular disease. Spinal stenosis at L4-5 and L5-S1. Normal appendix. Large gallbladder that is suggestive of gallbladder dysfunction. No dilated ducts.
[2022-05-27 10:07] LABS: Hepatitis A Antibody IgM Nonreactive (Nonreactive); Hepatitis B Core IgM Nonreactive (Nonreactive); Hepatitis B Surface Antigen Nonreactive (Nonreactive); Hepatitis C IgG Antibody Nonreactive (Nonreactive)
== END 2022-05-27 00:44 | disposition home or self-care (01) ==
LOC: EC 20:46
DX: K85.10 Biliary acute pancreatitis without necrosis or infection (principal); R17 Unspecified jaundice; I10 Essential (primary) hypertension; F41.9 Anxiety disorder, unspecified; F32.A Depression, unspecified; F17.200 Nicotine dependence, unspecified, uncomplicated; Z79.899 Other long term (current) drug therapy
CPT/HCPCS: 36415; 80053; 80074; 82150; 83605; 83690; 85025; 74176; 99285; 96360; 96361 ×2; J2405

== ENCOUNTER 2022-05-30 12:17 | Emergency (ER) | payer OTHER ==
[2022-05-30] MEDS ORDERED: ONDANSETRON 4 MG/2 ML VIAL IVP STA (12:43)
[2022-05-30] MEDS ORDERED: SODIUM CHLORIDE 0.9% 1,000 ML IV STA (12:43)
[2022-05-30] MEDS ORDERED: PANTOPRAZOLE 40 MG/10 ML VIAL IVP STA (12:43)
[2022-05-30] MEDS ORDERED: HYDROmorphone 0.5 MG/0.5 ML SYRINGE IVP STA ×2 (12:44→17:07)
--- NOTE | 2022-05-30 12:47 | ED ---
General Adult HPI - General Chief complaint: Abdominal Pain Stated complaint: revisit - liver issues Time Seen by Provider: 05/30/22 12:30 Source: patient, RN notes reviewed Mode of arrival: ambulatory Limitations: no limitations - History of Present Illness Initial comments: Patient is a pleasant 56-year-old male presenting to the emergency Department with abdominal problems. Onset of symptoms was around a week or 2 ago however much worse over the past for 5 days. Patient was here Saturday however did not want to be transferred. Patient did try to follow-up however they were unable to get him in at gastroenterology. Patient did follow-up with primary care physician and was advised come back to the emergency department. Patient is concerned of yellowing appearance of the skin. Patient has decreased appetite but is tolerating oral intake. Patient has abdominal discomfort, moderate with some mild discomfort in the back as well. Patient has had loose stools. Patient has nausea. Patient has vomited however not in several days. - Related Data Home Medications Medication Instructions Recorded Confirmed ALPRAZolam [Xanax] 0.25 mg PO HS PRN 10/20/15 05/30/22 Citalopram Hydrobromide [CeleXA] 40 mg PO DAILY 10/20/15 05/30/22 quiNINE sulfate [Qualaquin] 324 mg PO DAILY 10/20/15 05/30/22 methocarbamoL [Robaxin-750] 750 mg PO DAILY 05/13/17 05/30/22 Celecoxib [CeleBREX] 200 mg PO DAILY 10/03/18 05/30/22 lisinopriL 40 mg PO DAILY 10/03/18 05/30/22 HYDROcodone/APAP 10-325MG [[place] 1 tab PO Q6HR PRN 05/26/22 05/30/22 10-325] Sildenafil Citrate [Viagra] 100 mg PO DAILY PRN 05/26/22 05/30/22 Previous Rx's Medication Instructions Recorded Ondansetron Odt [Zofran ODT] 4 mg PO Q8HR PRN #10 tab 05/27/22 Allergies Allergy/AdvReac Type Severity Reaction Status Date / Time No Known Allergies Allergy Verified 05/30/22 14:53 Review of Systems ROS Statement: Those systems with pertinent positive or pertinent negative responses have been documented in the HPI. ROS Other: All systems not noted in ROS Statement are negative. Constitutional: Denies: fever, chills Eyes: Denies: eye pain ENT: Denies: ear pain Respiratory: Denies: cough Cardiovascular: Denies: chest pain Endocrine: Reports: fatigue Gastrointestinal: Reports: as per HPI, abdominal pain, nausea Genitourinary: Denies: dysuria Musculoskeletal: Reports: as per HPI Skin: Reports: as per HPI Neurological: Denies: headache Past Medical History Past Medical History: Hypertension Additional Past Medical History / Comment(s): back pain History of Any Multi-Drug Resistant Organisms: None Reported Past Surgical History: Back Surgery Additional Past Surgical History / Comment(s): BACK FUSION T6-8. Pain procedures. Past Anesthesia/Blood Transfusion Reactions: No Reported Reaction Past Psychological History: Anxiety, Depression Smoking Status: Current every day smoker Past Alcohol Use History: Daily Past Drug Use History: None Reported - Past Family History Mother Family Medical History: No Reported History Father Family Medical History: Diabetes Mellitus General Exam Limitations: no limitations General appearance: alert, in no apparent distress Head exam: Present: atraumatic Eye exam: Present: scleral icterus Neck exam: Present: normal inspection Respiratory exam: Present: normal lung sounds bilaterally Cardiovascular Exam: Present: regular rate, normal rhythm Expanded Peripheral pulses: 2+: Dorsalis Pedis (R), Dorsalis Pedis (L) GI/Abdominal exam: Present: soft, tenderness (Mild to moderate tenderness epigastrium and right upper quadrant). Absent: guarding, rebound, rigid, pulsatile mass Extremities exam: Present: normal inspection Neurological exam: Present: alert Psychiatric exam: Present: normal affect, normal mood Skin exam: Present: other (Jaundice appearance) Course Vital Signs 05/30/22 05/30/22 12:21 16:06 Temperature 98.0 F 98.1 F Pulse Rate 67 64 Respiratory 18 16 Rate Blood Pressure 135/84 133/75 O2 Sat by Pulse 100 100 Oximetry Medical Decision Making - Medical Decision Making Patient reevaluated. Case discussed with Dr. Randhawa who does recommend transfer for GI evaluation. Patient updated. IV antibiotics will be started. Case was discussed with Dr. Browne at [facility], who will accept transfer. - Lab Data Result diagrams: 05/30/22 12:59 05/30/22 12:59 Lab Results 12/21/22 12/21/22 12/21/22 Range/Units 12:59 12:59 12:59 WBC 6.6 (3.8-10.6) k/uL RBC 3.93 L (4.30-5.90) m/uL Hgb 13.6 (13.0-17.5) gm/dL Hct 41.4 (39.0-53.0) % MCV 105.4 H (80.0-100.0) fL MCH 34.7 (25.0-35.0) pg MCHC 32.9 (31.0-37.0) g/dL RDW 14.2 (11.5-15.5) % Plt Count 167 (150-450) k/uL MPV 12.6 Neutrophils % 64 % Lymphocytes % 25 % Monocytes % 7 % Eosinophils % 2 % Basophils % 1 % Neutrophils # 4.2 (1.3-7.7) k/uL Lymphocytes # 1.7 (1.0-4.8) k/uL Monocytes # 0.4 (0-1.0) k/uL Eosinophils # 0.1 (0-0.7) k/uL Basophils # 0.0 (0-0.2) k/uL Macrocytosis Moderate PT 10.6 (9.0-12.0) sec INR 1.0 (<1.2) APTT 25.9 (22.0-30.0) sec Sodium 139 (137-145) mmol/L Potassium 4.1 (3.5-5.1) mmol/L Chloride 111 H (98-107) mmol/L Carbon Dioxide 18 L (22-30) mmol/L Anion Gap 10 mmol/L BUN 10 (9-20) mg/dL Creatinine 0.79 (0.66-1.25) mg/dL Est GFR (CKD-EPI)AfAm >90 (>60 ml/min/1.73 sqM) Est GFR (CKD-EPI)NonAf >90 (>60 ml/min/1.73 sqM) Glucose 90 (74-99) mg/dL Plasma Lactic Acid Andrews (0.7-2.0) mmol/L Calcium 9.4 (8.4-10.2) mg/dL Total Bilirubin 14.1 H (0.2-1.3) mg/dL AST 152 H (17-59) U/L ALT 212 H (4-49) U/L Alkaline Phosphatase 460 H (38-126) U/L Total Protein 7.3 (6.3-8.2) g/dL Albumin 4.3 (3.5-5.0) g/dL Amylase 355 H* (30-110) U/L Lipase 4558 H (23-300) U/L Urine Color Urine Appearance (Clear) Urine pH (5.0-8.0) Ur Specific [place] (1.001-1.035) Urine Protein (Negative) Urine Glucose (UA) (Negative) Urine Ketones (Negative) Urine Blood (Negative) Urine Nitrite (Negative) Urine Bilirubin (Negative) Urine Urobilinogen (<2.0) mg/dL Ur Leukocyte Esterase (Negative) 05/30/22 05/30/22 Range/Units 12:59 14:42 WBC (3.8-10.6) k/uL RBC (4.30-5.90) m/uL Hgb (13.0-17.5) gm/dL Hct (39.0-53.0) % MCV (80.0-100.0) fL MCH (25.0-35.0) pg MCHC (31.0-37.0) g/dL RDW (11.5-15.5) % Plt Count (150-450) k/uL MPV Neutrophils % % Lymphocytes % % Monocytes % % Eosinophils % % Basophils % % Neutrophils # (1.3-7.7) k/uL Lymphocytes # (1.0-4.8) k/uL Monocytes # (0-1.0) k/uL Eosinophils # (0-0.7) k/uL Basophils # (0-0.2) k/uL Macrocytosis PT (9.0-12.0) sec INR (<1.2) APTT (22.0-30.0) sec Sodium (137-145) mmol/L Potassium (3.5-5.1) mmol/L Chloride (98-107) mmol/L Carbon Dioxide (22-30) mmol/L Anion Gap mmol/L BUN (9-20) mg/dL Creatinine (0.66-1.25) mg/dL Est GFR (CKD-EPI)AfAm (>60 ml/min/1.73 sqM) Est GFR (CKD-EPI)NonAf (>60 ml/min/1.73 sqM) Glucose (74-99) mg/dL Plasma Lactic Acid Andrews 0.9 (0.7-2.0) mmol/L Calcium (8.4-10.2) mg/dL Total Bilirubin (0.2-1.3) mg/dL AST (17-59) U/L ALT (4-49) U/L Alkaline Phosphatase (38-126) U/L Total Protein (6.3-8.2) g/dL Albumin (3.5-5.0) g/dL Amylase (30-110) U/L Lipase (23-300) U/L Urine Color Dark Brown Urine Appearance Clear (Clear) Urine pH 6.0 (5.0-8.0) Ur Specific [place] 1.013 (1.001-1.035) Urine Protein Trace H (Negative) Urine Glucose (UA) Negative (Negative) Urine Ketones Negative (Negative) Urine Blood Negative (Negative) Urine Nitrite Negative (Negative) Urine Bilirubin 2+ H (Negative) Urine Urobilinogen <2.0 (<2.0) mg/dL Ur Leukocyte Esterase Negative (Negative) - Radiology Data Radiology results: report reviewed (Ultrasound of the gallbladder suspicious for cholecystitis.) Interpreted by me: Abdominal x-ray shows nonobstructive pattern Disposition Clinical Impression: Acute cholecystitis, Acute pancreatitis Disposition: OTHER INSTITUTION NOT DEFINED Is patient prescribed a controlled substance at d/c from ED?: No Referrals: Yvrose Coffey DO [Primary Care Provider] - 1-2 days Time of Disposition: 16:38 - Out of Hospital Transfer - Req. Specs Out of Hospital Transfer - Requested Specifics: Other Emergency Center
[2022-05-30 13:24] LABS: ALT 212 U/L (4-49); AST 152 U/L (17-59); African American GFR (CKD) >90 (>60 ml/min/1.73 sqM); Albumin 4.3 g/dL (3.5-5.0); Alkaline Phosphatase 460 U/L (38-126); Anion Gap 10 mmol/L; Blood Urea Nitrogen 10 mg/dL (9-20); Calcium 9.4 mg/dL (8.4-10.2); Carbon Dioxide 18 mmol/L (22-30); Chloride 111 mmol/L (98-107); Glucose 90 mg/dL (74-99); Non-African American GFR(CKD) >90 (>60 ml/min/1.73 sqM); Potassium 4.1 mmol/L (3.5-5.1); Sodium 139 mmol/L (137-145); Total Bilirubin 14.1 mg/dL (0.2-1.3); Total Protein 7.3 g/dL (6.3-8.2)
[2022-05-30 13:39] LABS: Basophils % (A) 1 %; Eosinophils # (A) 0.1 k/uL (0-0.7); Eosinophils % (A) 2 %; HCT 41.4 % (39.0-53.0); HGB 13.6 gm/dL (13.0-17.5); Lymphocytes # (A) 1.7 k/uL (1.0-4.8); Lymphocytes % (A) 25 %; MCH 34.7 pg (25.0-35.0); MCHC 32.9 g/dL (31.0-37.0); MCV 105.4 fL (80.0-100.0); Macrocytosis Moderate; Mean Platelet Volume 12.6; Monocytes # (A) 0.4 k/uL (0-1.0); Monocytes % (A) 7 %; Neutrophils # (A) 4.2 k/uL (1.3-7.7); Neutrophils % (A) 64 %; Platelet Count 167 k/uL (150-450); RBC 3.93 m/uL (4.30-5.90); RDW 14.2 % (11.5-15.5); WBC 6.6 k/uL (3.8-10.6)
[2022-05-30 13:51] LABS: Amylase 355 U/L (30-110)
[2022-05-30 13:53] LABS: Lipase 4558 U/L (23-300)
[2022-05-30 13:57] LABS: Partial Thromboplastin Time 25.9 sec (22.0-30.0); Prothrombin Time 10.6 sec (9.0-12.0)
--- NOTE | 2022-05-30 14:20 | XR ---
EXAMINATION TYPE: XR KUB DATE OF EXAM: 05/30/2022 COMPARISON: NONE HISTORY: Pain TECHNIQUE: Single supine KUB image of the abdomen is obtained FINDINGS: Small bowel demonstrates no evidence for dilatation or air fluid levels. Gas and fecal material is seen in non-distended colon. No convincing evidence for pneumoperitoneum. No unusual calcifications. The lung bases are clear. The osseous structures are intact. IMPRESSION: 1. Overall nonobstructive bowel gas pattern.
[2022-05-30 14:50] LABS: Appearance,Urine Clear (Clear); Bilirubin,Urine 2+ (Negative); Blood,Urine Negative (Negative); Color,Urine Dark Brown; Glucose,Urine (UA) Negative (Negative); Ketones,Urine Negative (Negative); Leukocyte Esterase,Urine Negative (Negative); Nitrite,Urine Negative (Negative); Protein,Urine Trace (Negative); Specific Gravity,Urine 1.013 (1.001-1.035); Urobilinogen,Urine <2.0 mg/dL (<2.0)
--- NOTE | 2022-05-30 14:57 | US ---
EXAMINATION TYPE: US gallbladder DATE OF EXAM: 05/30/2022 COMPARISON: CT, XR CLINICAL HISTORY: abp, jaundice, eval gb and panc. Pain, jaundice. TECHNIQUE: Multiple sonographic images of the right upper quadrant are obtained. FINDINGS: EXAM MEASUREMENTS: Liver Length: 16.9 cm Gallbladder Wall: 0.3 cm CBD: 1.23 cm Right Kidney: 10.6 x 5.9 x 4.5 cm [employer] NOTES: Exam is very limited due to gas. Pancreas: Not well seen. Liver: Appears heterogeneous with increased attenuation. Gallbladder: Appears enlarged measuring 11.1 cm in length and 4.6 cm in width. Internal echoes/echog enic material is seen within the gallbladder. Wall measures upper limits. Evidence for sonographic Martinez's sign: No CBD: Appears dilated Right Kidney: No hydronephrosis or masses seen IMPRESSION: 1. Acute cholecystitis is difficult to exclude. Correlate clinically. 2. Hepatic heterogeneity may reflect hepatic steatosis.
[2022-05-30] MEDS ORDERED: PIPERACILLIN-TAZOBACTAM 3.375 GM in SODIUM CHLORIDE 0.9% 100 ML IVPB STA (16:07)
[2022-05-30 16:08] VITALS: TEMP 98.1
[2022-05-30] MEDS ORDERED: NICOTINE 21MG/24HR PATCH TRANSDERM STA (16:49)
[2022-05-30 16:58] VITALS: BP 126/76; PULSE 58; RESP 18
== END 2022-05-30 18:04 | disposition other institution (70) ==
LOC: EC 12:17
DX: K81.0 Acute cholecystitis (principal); K85.90 Acute pancreatitis without necrosis or infection, unspecified; I10 Essential (primary) hypertension; F41.9 Anxiety disorder, unspecified; F32.A Depression, unspecified; F17.200 Nicotine dependence, unspecified, uncomplicated
CPT/HCPCS: 36415; 80053; 82150; 83605; 83690; 85025; 85610; 85730; 81003; 87040; 74018; 76705; 99285; 96365; 96375 ×3; 96361 ×5; 96376; S4990; J2543; J2405; C9113; J1170